=== PATIENT | male | born 1960 | race Caucasian/White ===

== ENCOUNTER 2017-03-28 16:41 | Emergency (ER) | payer SELFPAY | END 2017-03-28 18:05 | disposition home or self-care (01) | LOC: ER1 16:41 | DX: K13.0 Diseases of lips (principal); K02.9 Dental caries, unspecified; F17.210 Nicotine dependence, cigarettes, uncomplicated | CPT/HCPCS: 99283 ==

== ENCOUNTER 2021-07-05 19:34 | Emergency (ER) | payer BC, MEDICAID ==
[~2021-07-05 19:34] MED LIST: BACTRIM DS TAB1 EACH PO; KEFLEX CAP 500500 MG PO; NORVASC 5 MG TAB5 MG PO
[2021-07-05 20:25] LABS: HEMOGLOBIN 17.2 gm/dl (14.0-17.5); RED BLOOD COUNT 5.64 M/UL (4.20-5.50); WHITE BLOOD COUNT 8.1 K/UL (4.5-11.0)
[2021-07-05 21:04] LABS: BUN/CREATININE RATIO 12 (0-10)
[2021-07-05] MEDS ORDERED: PROVENTIL HFA6.7 GM INH (22:17)
[2021-07-05] MEDS ORDERED: IBUPROFEN800 MG PO (22:17)
[2021-07-05] MEDS ORDERED: CATAPRES 0.1MG0.1 MG PO (22:17)
== END 2021-07-06 00:45 | disposition home or self-care (01) ==
LOC: ER1 19:34
PROVIDERS: Physician Assistant
DX: Z23 Encounter for immunization (principal); U07.1 COVID-19; I10 Essential (primary) hypertension; F17.200 Nicotine dependence, unspecified, uncomplicated
CPT/HCPCS: 71045; 80053; 81001; 82550; 82553; 83874; 84484; 85025; 93005; 99284; M0243; U0002